=== PATIENT | female | born 1975 | race Caucasian/White ===

== ENCOUNTER 2020-11-05 09:27 | Inpatient (IN) | payer BC ==
--- OUTSIDE RECORDS SUMMARY | 2020-11-05 09:30 | XMS REPORT | Continuity of Care Document ---
:1975 Author Organization [facility] t Address [address] [place] [address] Dr. Whitaker. [address] [place] [address] Care Team Providers Name Role Phone DR LAUREN Attending Clinician Unavailable DR LAUREN Admitting Clinician Unavailable Problems This patient has no known problems. Allergies, Adverse Reactions, Alerts This patient has no known allergies or adverse reactions. Medications This patient has no known medications. Procedures This patient has no known procedures. Encounters Start End Encounter Admission Attending Care Care Encounter Source Date/Time Date/Time Type Type Clinicians Facility Department ID 2019-02-09 Inpatient SEMAJ JAMESON [facility] [id number] [facility] 06:34:00 [facility] Results This patient has no known results.
--- NOTE | 2020-11-05 10:39 | RAD REPORT ---
EXAM DESCRIPTION: US - Abdomen Exam Limited - 11/05/2020 10:29 am CLINICAL HISTORY: ABD PAIN COMPARISON: CT ABD PELVIS W CONTRAST dated 06/30/2011CT ABD PELVIS W CONTRAST dated 06/30/2011 FINDINGS: Gallbladder size is normal. There are multiple variably sized gallstones throughout the ga llbladder lumen including stones that remain fixed at the neck. Gallbladder wall thickening is presen t and there is a trace amount of pericholecystic fluid present. Pattern is consistent with acute chol ecystitis and needs correlation with clinical presentation. No common duct stone or biliary tree dilatation identified. IMPRESSION: Multiple gallstones, wall thickening and pericholecystic fluid involving a normal-sized gallbladder. Findings are consistent with acute cholecystitis and can be correlated with clinical presentation. No biliary tree abnormality identified.
[2020-11-05] MEDS ORDERED: ONDANSETRON 4 MG/2 ML VIAL ONE (11:08)
[2020-11-05] MEDS ORDERED: MORPHINE 2 MG/ML SYR ONE (11:08)
[2020-11-05 11:27] LABS: Absolute Lymphocytes (CBC) 0.8 K/uL (0.7-4.9); Basophils % 0.3 % (0-1.3); Hematocrit 40.8 % (36.0-45.0); Lymphocytes % 5.9 % (15.3-44.8); MPV 7.4 fL (7.6-11.3); RBC Red Blood Cell Count 4.62 M/uL (3.86-4.86)
[2020-11-05 11:40] LABS: Albumin 3.8 g/dL (3.4-5.0); Bilirubin Direct 0.3 mg/dL (0-0.2); Potassium 3.4 mmol/L (3.5-5.1); Protein, Total 8.2 g/dL (6.4-8.2)
[2020-11-05] MEDS ORDERED: CEFTRIAXONE/SWI 1gm 1 GM/10 ML SYR ONE (12:36)
[2020-11-05 13:16] LABS: Blood Morphology Comment NOT SEEN (NOT SEEN); Platelet Estimate ADEQ; White Blood Cell Scan OK (OK)
--- NOTE | 2020-11-05 14:43 | HP ---
Date of Admission: 11/05/2020 Chief Complaint: Abdominal pain. History Of Present Illness: The patient is a 45-year-old female, who presents with a 3-day history o f acute onset of epigastric pain going to the back, associated with nausea, vomiting, bloating. No b elching or heartburn. No diarrhea or constipation. No blood in her stool. No dysuria or hematuria. No sore throat, runny nose, cough, headaches, or dizziness. No chest pain. She does have a low-gr suzanne fever. Review of Systems: Otherwise unremarkable. Past Medical History: Negative. Past Surgical History: and hysterectomy. Allergies: INCLUDE CEPHALOSPORIN, PENICILLIN, CIPRO. IT IS UNSURE WHETHER THE PATIENT IS ALLERGIC T O CEPHALOSPORINS OR NOT AT THIS TIME. Social History: The patient denies smoking or drinking. Family History: Noncontributory. Physical Examination: Vital Signs: Stable. She is currently afebrile. General: She is awake, alert, and oriented x3. Head and Neck: No evidence of icterus. Cranial nerves 2 through 12 are grossly within normal limits . No neck masses. No JVD. Throat clear. Neck is supple. Chest: Clear. Heart: S1, S2. Abdomen: Soft, nondistended. Positive bowel sounds. Positive right upper quadrant tenderness. No rebound. No rigidity or guarding. Extremities: Adequately perfused. Nontender. Neuro: Nonfocal. Laboratory Data: White count is 13.8 with a left shift. Chemistry reviewed. LFTs are within normal limits. Ultrasound reviewed shows multiple gallstones, wall thickening, pericholecystic fluid invol ving the normal size gallbladder. Findings are consistent with acute cholecystitis. No biliary tree abnormalities identified. Assessment: Acute cholecystitis and cholelithiasis. Recommendations: Admit, n.p.o., IV fluid, IV antibiotic, to the OR for laparoscopic cholecystectomy possible open. The patient understands the risks, benefits, and alternatives and agrees to procedure . /MODL Voice ID: [id number]
[2020-11-05] MEDS ORDERED: ONDANSETRON 4 MG/2 ML VIAL IV PRN (16:51)
[2020-11-05] MEDS ORDERED: MORPHINE 2 MG/ML SYR IV PRN (16:57)
[2020-11-05] MEDS: METRONIDAZOLE 500mg IVPB 500 MG/100 ML BAG IV SCH (17:19)
[2020-11-05] MEDS: D5 0.45 NS 1,000 ML IV SCH (17:19)
[2020-11-05 17:37] VITALS: BMI 38.3
--- NOTE | 2020-11-05 18:02 | EDPHYS ---
Physician Documentation [facility] Name: Kimberly Mullen Age: 45 yrs Sex: Female : 1975 Arrival Date: 11/05/2020 Time: 09:29 Bed 23 Private MD: ED Physician Jacob Curiel HPI: 11/05 10:52 This 45 yrs old Female presents to ER via Ambulatory with complaints of rn Gallstones. 10:52 The patient presents with abdominal pain in the epigastric area, in the right upper rn quadrant. Onset: The symptoms/episode began/occurred 3 day(s) ago. The symptoms radiate to back. Associated signs and symptoms: Pertinent positives: nausea and vomiting, anorexia, fever, Pertinent negatives: blood in stools. The symptoms are described as constant, sharp. Modifying factors: The symptoms are alleviated by nothing, the symptoms are aggravated by touching the area. Severity of pain: At its worst the pain was moderate in the emergency department the pain is unchanged. The patient has not experienced similar symptoms in the past. The patient has been recently seen by a physician:. Patient states seen in [place] ER 3 days ago, told to follow-up with Dr. Szymanski as outpatient for gallstones seen on CT scan. No available ultrasound that night. Returns with persistent and constant upper abdominal pain associated with subjective fever and nausea. No previous gallstone attacks in the past.. Historical: - Allergies: 11:25 Cipro; ss 11:25 PENICILLINS; ss - Home Meds: 09:47 None [Active]; ss - PMHx: 09:47 MS; ss - PSHx: 09:47 Hysterectomy; Tonsillectomy; R foot; Lumpectomy of breast; ss - Immunization history:: Adult Immunizations up to date, Client reports having NOT received the Covid vaccine. - Social history:: Smoking status: Patient denies any tobacco usage or history of. - Family history:: not pertinent. - Hospitalizations: : No recent hospitalization is reported. ROS: 10:52 Constitutional: Negative for fever, chills, and weight loss, Eyes: Negative for injury, rn pain, redness, and discharge, Cardiovascular: Negative for chest pain, palpitations, and edema, Respiratory: Negative for shortness of breath, cough, wheezing, and pleuritic chest pain, Abdomen/GI: Positive for abdominal pain, nausea, vomiting Back: Negative for injury and pain, : Negative for injury, bleeding, discharge, and swelling, MS/Extremity: Negative for injury and deformity, Skin: Negative for injury, rash, and discoloration, Neuro: Negative for headache, weakness, numbness, tingling, and seizure. Exam: 10:52 Constitutional: This is a well developed, well nourished patient who is awake, alert, rn and in no acute distress. Head/Face: Normocephalic, atraumatic. Eyes: Periorbital areas with no swelling, redness, or edema. Cardiovascular: Regular rate and rhythm. No pulse deficits. Respiratory: No increased work of breathing, no retractions or nasal flaring. Abdomen/GI: Soft, positive epigastric and right upper quadrant tenderness with guarding, positive Nieves sign Skin: Warm, dry MS/ Extremity: Pulses equal, no cyanosis. Neuro: Awake and alert, GCS 15 Vital Signs: 09:43 BP 112 / 55; Pulse 94; Resp 16; Temp 99.3(TE); Pulse Ox 99% on R/A; Weight 86.18 kg; ss Height 5 ft. 0 in. (152.40 cm); Pain 6/10; 11:08 BP 100 / 60; Pulse 78; Resp 15; Pulse Ox 95% on R/A; Pain 0/10; ss 12:41 BP 108 / 60; Pulse 80; Resp 18; Pulse Ox 98% on R/A; ld1 13:40 BP 113 / 68; Pulse 86; Resp 18; Pulse Ox 100% on R/A; ld1 16:28 BP 118 / 76; Pulse 80; Resp 18; Pulse Ox 100% ; ld1 09:43 Body Mass Index 37.11 (86.18 kg, 152.40 cm) MDM: 10:24 Patient medically screened. rn 11:01 Differential diagnosis: cholecystitis, Cholelithiasis, gastritis. Data reviewed: vital rn signs, nurses notes, lab test result(s), radiologic studies, ultrasound, and as a result, I will admit patient. Counseling: I had a detailed discussion with the patient and/or guardian regarding: the historical points, exam findings, and any diagnostic results supporting the discharge/admit diagnosis, lab results, radiology results, the need for further work-up and treatment in the hospital. Response to treatment: the patient's symptoms have mildly improved after treatment, and as a result, I will admit patient. Admission orders: after a detailed discussion of the patient's condition and case, the admit orders are written by me. ED course: Ultrasound consistent with acute cholecystitis, will admit to Dr. Szymanski for cholecystectomy.. 11:50 ED course: Dr. Szymanski states not on-call, says Dr. Olson is road conductor will direct rn patient for admission to Dr. Olson. 11/05 10:41 Order name: CBC with Diff rn 11/05 10:41 Order name: Basic Metabolic Panel; Complete Time: 11:41 rn 11/05 10:41 Order name: LFT's; Complete Time: 11:41 rn 11/05 10:41 Order name: Lipase; Complete Time: 11:41 rn 11/05 12:09 Order name: COVID-19 : Document "Date of Symptom Onset" if Symptomatic. bd 11/05 13:17 Order name: CBC Smear Scan EDWV 11/05 09:55 Order name: US Abdomen Limited; Complete Time: 10:40 rn 11/05 10:41 Order name: IV Start; Complete Time: 11:03 rn 11/05 13:39 Order name: Diet Clear Liquid; Complete Time: 13:39 ld1 11/05 13:50 Order name: SARS-COV-2 RT PCR EDWV 11/05 10:41 Order name: NPO; Complete Time: 10:44 rn Administered Medications: 11:00 Drug: Zofran (Ondansetron) 4 mg Route: IVP; Site: right antecubital; ss 11:08 Follow up: Response: No adverse reaction ss 11:03 Drug: morphine 2 mg Route: IVP; Site: right antecubital; ss 11:08 Follow up: Response: No adverse reaction; Marked relief of symptoms; Pain is decreased ss 11:39 Not Given (Allergyy): Zosyn (piperacillin-tazobactam) 3.375 grams IVPB once over 60 rn mins; (mix in NS 100 mL) 12:24 Drug: Rocephin (cefTRIAXone) 1 grams Route: IV; Rate: calculated rate; Site: right ld1 antecubital; 12:25 Follow up: Response: No adverse reaction; IV Status: Completed infusion ld1 Disposition Summary: 11/05/20 11:02 Hospitalization Ordered Hospitalization Status: Inpatient Admission rn Location: Telemetry/MedSur (Inpatient) rn Condition: Stable rn Problem: new rn Symptoms: have improved rn Bed/Room Type: Standard rn Provider: Mykel Olson(11/05/20 11:51) rn Room Assignment: [facility](11/05/20 15:31) ss Diagnosis - Acute cholecystitis rn Forms: - Medication Reconciliation Form rn - SBAR form rn Signatures: Dispatcher [employer] EDWV Jacob Curiel MD MD rn Smirch, Shelby, RN RN Joy Burks RN RN ld1 Corrections: (The following items were deleted from the chart) 11:25 09:47 Allergies: No Known Allergies; [facility] 11: 11:02 Azar Szymanski rn rn 15:31 11:02 rn ss
--- NOTE | 2020-11-05 18:02 | ER ---
Nurse's Notes [facility] Name: Kimberly Mullen Age: 45 yrs Sex: Female : 1975 Arrival Date: 11/05/2020 Time: 09:29 Bed 23 Private MD: Diagnosis: Acute cholecystitis Presentation: 11/05 09:43 Chief complaint: Patient states: epigastric pain that began 3 days ago. Pt had CT at another ER which showed cholelithiasis. Pt states that she has an appt with Dr. Szymanski in two days, but just need some pain relief for now. Coronavirus screen: Client denies travel out of the [place] in the last 14 days. Ebola Screen: Patient denies exposure to infectious person. Patient denies travel to an Ebola-affected area in the 21 days before illness onset. Initial Sepsis Screen: Does the patient meet any 2 criteria? No. Patient's initial sepsis screen is negative. Does the patient have a suspected source of infection? No. Patient's initial sepsis screen is negative. Risk Assessment: Do you want to hurt yourself or someone else? Patient reports no desire to harm self or others. Note Pt reports that PO Tramadol that was given during previous hospital visit helped her discomfort significantly. Onset of symptoms was November 02, 2020. 09:43 Method Of Arrival: Ambulatory ss 09:43 Acuity: ALBERTINA 4 ss 10:43 Acuity: ALBERTINA 3 ss Historical: - Allergies: 11:25 Cipro; ss 11:25 PENICILLINS; ss - Home Meds: 09:47 None [Active]; ss - PMHx: 09:47 MS; ss - PSHx: 09:47 Hysterectomy; Tonsillectomy; R foot; Lumpectomy of breast; - Immunization history:: Adult Immunizations up to date, Client reports having NOT received the Covid vaccine. - Social history:: Smoking status: Patient denies any tobacco usage or history of. - Family history:: not pertinent. - Hospitalizations: : No recent hospitalization is reported. Screenin:29 Abuse screen: Denies threats or abuse. Denies injuries from another. Nutritional ss screening: No deficits noted. Tuberculosis screening: Never had TB. Fall Risk None identified. Assessment: 10:29 Reassessment: Pt now in exam room after having ultrasound completed. ss 10:30 General: Appears in no apparent distress. comfortable, Behavior is calm, cooperative, ss Denies fever, feeling ill, fatigue, chills. Pain: Complains of pain in epigastric area Pain currently is 6 out of 10 on a pain scale. Quality of pain is described as aching, Pain began 3 days ago Is continuous. Neuro: Level of Consciousness is awake, alert, obeys commands, Oriented to person, place, time, situation, Nanny/Household Manager are equal bilaterally Speech is normal. Cardiovascular: Capillary refill < 3 seconds is brisk in bilateral fingers Patient's skin is warm and dry. Respiratory: Airway is patent Respiratory effort is even, unlabored, Respiratory pattern is regular, symmetrical. GI: Reports upper abdominal pain. : No signs and/or symptoms were reported regarding the genitourinary system. EENT: Oral mucosa is moist. Derm: Skin is intact, is healthy with good turgor, Skin is dry, Skin is pink, warm \\T\\ dry. normal. Musculoskeletal: Circulation, motion, and sensation intact. Range of motion: intact in all extremities, Swelling absent. 11:07 Reassessment: awaiting for pharmacy to bring Zosyn. ss 11:56 Reassessment: Patient appears in no apparent distress at this time. Patient and/or ss family updated on plan of care and expected duration. Pain level reassessed. Patient is alert, oriented x 3, equal unlabored respirations, skin warm/dry/pink. Zosyn changed due to patient's allergies. Patient states feeling better. Patient states symptoms have improved. 12:41 Reassessment: Patient appears in no apparent distress at this time. No changes from ld1 previously documented assessment. Patient and/or family updated on plan of care and expected duration. Pain level reassessed. Patient is alert, oriented x 3, equal unlabored respirations, skin warm/dry/pink. 13:40 Reassessment: Patient appears in no apparent distress at this time. No changes from ld1 previously documented assessment. Patient is alert, oriented x 3, equal unlabored respirations, skin warm/dry/pink. 16:28 Reassessment: Patient appears in no apparent distress at this time. No changes from ld1 previously documented assessment. Patient and/or family updated on plan of care and expected duration. Pain level reassessed. Patient is alert, oriented x 3, equal unlabored respirations, skin warm/dry/pink. Vital Signs: 09:43 BP 112 / 55; Pulse 94; Resp 16; Temp 99.3(TE); Pulse Ox 99% on R/A; Weight 86.18 kg; ss Height 5 ft. 0 in. (152.40 cm); Pain 6/10; 11:08 BP 100 / 60; Pulse 78; Resp 15; Pulse Ox 95% on R/A; Pain 0/10; ss 12:41 BP 108 / 60; Pulse 80; Resp 18; Pulse Ox 98% on R/A; ld1 13:40 BP 113 / 68; Pulse 86; Resp 18; Pulse Ox 100% on R/A; ld1 16:28 BP 118 / 76; Pulse 80; Resp 18; Pulse Ox 100% ; ld1 09:43 Body Mass Index 37.11 (86.18 kg, 152.40 cm) ED Course: 09:29 Patient arrived in ED. mr 09:47 Triage completed. ss 09:47 Arm band placed on right wrist. ss 10:24 Jacob Curiel MD is Attending Physician. rn 10:29 US Abdomen Limited In Process Unspecified. EDMS 10:29 Alexandra Tapia RN is Primary Nurse. ss 10:29 Patient has correct armband on for positive identification. Bed in low position. Call ss light in reach. 11:01 Azar Szymanski MD is Hospitalizing Provider. rn 11:02 Inserted saline lock: 20 gauge in right antecubital area, using aseptic technique. ss Blood collected. 11:51 Hospitalizing Provider role handed off by Azar Szymanski MD rn 11:51 Mykel Olson MD is Hospitalizing Provider. rn 12:24 COVID-19 : Document "Date of Symptom Onset" if Symptomatic. Sent. ld1 16:28 No provider procedures requiring assistance completed. Patient admitted, IV remains in ld1 place. intact, bleeding controlled, No redness/swelling at site. Administered Medications: 11:00 Drug: Zofran (Ondansetron) 4 mg Route: IVP; Site: right antecubital; ss 11:08 Follow up: Response: No adverse reaction ss 11:03 Drug: morphine 2 mg Route: IVP; Site: right antecubital; ss 11:08 Follow up: Response: No adverse reaction; Marked relief of symptoms; Pain is decreased ss 11:39 Not Given (Allergyy): Zosyn (piperacillin-tazobactam) 3.375 grams IVPB once over 60 rn mins; (mix in NS 100 mL) 12:24 Drug: Rocephin (cefTRIAXone) 1 grams Route: IV; Rate: calculated rate; Site: right ld1 antecubital; 12:25 Follow up: Response: No adverse reaction; IV Status: Completed infusion ld1 Outcome: 11:02 Decision to Hospitalize by Provider. rn 16:41 Patient left the ED. ld1 16:41 Admitted to Med/surg accompanied by tech, via wheelchair. ss 16:41 Condition: good 16:41 Instructed on the need for admit. Signatures: Dispatcher [employer] EDMO Tiarra Rocha mr Jacob Curiel MD MD rn Smirch, Shelby, RN RN Joy Burks RN RN ld1 Corrections: (The following items were deleted from the chart) 11:25 09:47 Allergies: No Known Allergies; ss ss
[2020-11-05] MEDS: HYDROMORPHONE HCL 1 MG/ML INJ IV PRN (20:09)
[2020-11-06] MEDS: HYDROMORPHONE HCL 1 MG/ML INJ IV PRN ×4 (00:50→08:27)
[2020-11-06] MEDS: D5 0.45 NS 1,000 ML IV SCH ×3 (00:58→16:51)
[2020-11-06] MEDS: METRONIDAZOLE 500mg IVPB 500 MG/100 ML BAG IV SCH ×3 (00:58→16:03)
[2020-11-06 04:42] LABS: Absolute Lymphocytes (CBC) 0.6 K/uL (0.7-4.9); Basophils % 0.2 % (0-1.3); Hematocrit 37.3 % (36.0-45.0); Lymphocytes % 3.4 % (15.3-44.8); MPV 7.4 fL (7.6-11.3); RBC Red Blood Cell Count 4.21 M/uL (3.86-4.86)
[2020-11-06 04:58] LABS: ALT/SGPT 16 U/L (12-78); AST/SGOT 10 U/L (15-37); Albumin 3.1 g/dL (3.4-5.0); Alkaline Phosphatase 90 U/L (45-117); BUN Blood Urea Nitrogen 12 mg/dL (7-18); Bicarbonate 23 mmol/L (21-32); Bilirubin Direct 0.3 mg/dL (0-0.2); Bilirubin Total 0.8 mg/dL (0.2-1.0); Glucose Level 151 mg/dL (74-106); Lipase 89 U/L (73-393); Potassium 3.4 mmol/L (3.5-5.1); Sodium Level 136 mmol/L (136-145)
[2020-11-06] MEDS: CEFTRIAXONE/SWI 1gm 1 GM/10 ML SYR IVP SCH (08:33)
[2020-11-06] MEDS ORDERED: Ringers Lactate 1,000 ML IV ONE ×2 (09:06→11:50)
[2020-11-06] MEDS ORDERED: BUPIVACAINE 0.5% PF 10 ML VIAL ONE (09:35)
[2020-11-06] MEDS ORDERED: propofoL 200 MG/20 ML VIAL IV ONE (10:26)
[2020-11-06] MEDS ORDERED: MIDAZOLAM HCL 2 MG/2 ML INJ ONE (10:26)
[2020-11-06] MEDS ORDERED: ROCURONIUM 50 MG/5 ML VIAL IV ONE (10:26)
[2020-11-06] MEDS ORDERED: LIDOCAINE 1% MPF 5 ML VIAL ONE (10:26)
[2020-11-06] MEDS ORDERED: FENTANYL CITR 100 MCG/2 ML ONE ×2 (10:26→12:00)
[2020-11-06] MEDS ORDERED: dexAMETHasone 10 MG/ML VIAL ONE (10:59)
[2020-11-06] MEDS ORDERED: KETOROLAC 30 MG/ML INJ ONE (10:59)
[2020-11-06] MEDS ORDERED: ONDANSETRON 4 MG/2 ML VIAL ONE (10:59)
[2020-11-06] MEDS ORDERED: EPHEDRINE SULF 50 MG/ML VIAL ONE (11:13)
[2020-11-06] MEDS ORDERED: NS 0.9% VIAL 10 ML ONE (11:14)
[2020-11-06] MEDS ORDERED: NEOSTIGMINE 1 MG/ML -5 ML ONE (11:34)
[2020-11-06] MEDS ORDERED: GLYCOPYRROLATE 0.2 MG/ML SYR ONE (11:34)
[2020-11-06] MEDS ORDERED: HYDROCODONE/APAP 7.5/325 MG TAB PO PRN (11:52)
--- NOTE | 2020-11-06 11:52 | P.OP ---
Charger Operator: Eddie LOPEZ Preoperative diagnosis: Acute Cholecystitis and Cholelithiasis Postoperative diagnosis: same with umbilical hernia Primary procedure: Lap Dia, Repair Umbilical hernia Anesthesia: General Estimated blood loss: min Specimen: GB Findings: as above Drain(s): KINGS drain Transferred to: Recovery Room Condition: Good
[2020-11-06] MEDS ORDERED: Mastisol Adhesive Liq ONE (12:10)
--- NOTE | 2020-11-06 12:52 | OP ---
Date of Procedure: 11/06/2020 Surgeon: Mykel Olson MD Weigher Production: JOHN Morales Preoperative Diagnoses: Acute cholecystitis with cholelithiasis. Postoperative Diagnoses: Acute cholecystitis with cholelithiasis with gangrenous changes and umbilic al hernia. Procedures Performed: Laparoscopic cholecystectomy, repair of umbilical hernia. Estimated Blood Loss: Minimal. Specimen: Hernia sac and gallbladder. Finding: As above. Anesthesia: General. Complications: None. Drains: KINGS #10 flat Disposition: The patient tolerated the procedure in stable condition and taken to Recovery in good g eneral condition. Procedure In Detail: The patient was brought to the OR and placed in supine position. General anest hesia begun. The patient was prepped and draped in the usual sterile fashion. Marcaine 0.5% infiltr ated locally and a 15-blade was used to make a 1.5 cm incision just at the umbilicus. Subcutaneous t issue divided and a hernia sac was identified just above the umbilicus. The contents were excised, h ernia sac was excised, sent to pathology. A small defect in the fascia remained, which was extended to approximately 1 cm and a #1 Vicryl stay suture was placed. Peritoneal cavity was entered with sha rp and blunt dissection. A 12 mm trocar was placed into the peritoneal cavity under direct vision. Pneumoperitoneum was established. Then, three 5 mm trocars were placed, 1 in the epigastrium just to the right of midline and 2 in the right subcostal region. Laparoscopy revealed some adhesions in th e right side of the abdomen, which were taken down with LigaSure. Fundus of the gallbladder was iden tified. There were ischemic and gangrenous changes noted in the fundus and near the infundibulum and the cystic duct region. It was distended. It was aspirated off bile and then the fundus retracted superiorly. Infundibulum was identified and carefully retracted inferolaterally. Then, cystic duct and cystic artery were identified. They appeared to be healthy and clips were placed and both struct ures were divided. Cautery used to remove the gallbladder from the liver bed. Bleeding on the liver bed was controlled with cautery and then gallbladder was retrieved through the umbilicus via an Endo Catch bag and then right upper quadrant was examined. No evidence of bleeding or bile leakage apprec iated. Jad-Mcqueen drain #10 flat placed in the gallbladder fossa because of the ischemic and gang renous changes seen on the gallbladder especially near the cystic duct and then this was secured with 3-0 nylon and then #1 Vicryl was used to close the fascial defect and subcutaneous wounds irrigated. Bleeding controlled with cautery. A 3-0 chromic used to reapproximate subcutaneous tissue and stap les used to close skin. Sterile dressing applied. The patient was awakened and taken to Recovery in good general condition. AL/MANDEEP Voice ID: [id number] Report ID: [id number]
[2020-11-06] MEDS ORDERED: NA CHLORIDE 0.9% 50 ML ONE (21:49)
[2020-11-06] MEDS ORDERED: PIPERACIL/TAZO 2.25 GM VIAL IV ONE (21:49)
[2020-11-07] MEDS: D5 0.45 NS 1,000 ML IV SCH ×2 (00:09→08:51)
[2020-11-07] MEDS: METRONIDAZOLE 500mg IVPB 500 MG/100 ML BAG IV SCH ×2 (00:09→09:56)
[2020-11-07 07:05] LABS: Absolute Lymphocytes (CBC) 0.6 K/uL (0.7-4.9); Basophils % 0.2 % (0-1.3); Hematocrit 34.6 % (36.0-45.0); Lymphocytes % 3.4 % (15.3-44.8); MPV 7.5 fL (7.6-11.3); RBC Red Blood Cell Count 3.91 M/uL (3.86-4.86)
[2020-11-07 07:16] LABS: BUN Blood Urea Nitrogen 15 mg/dL (7-18); Bicarbonate 25 mmol/L (21-32); Glucose Level 138 mg/dL (74-106); Magnesium 2.3 mg/dL (1.8-2.4); Phosphorus 1.8 mg/dL (2.5-4.9); Potassium 3.6 mmol/L (3.5-5.1); Sodium Level 139 mmol/L (136-145)
[2020-11-07 08:59] VITALS: BP 102/59; TEMP 98.7
[2020-11-07] MEDS ORDERED: POTASSIUM CL SA 10 MEQ TAB PO ONE (09:00)
--- NOTE | 2020-11-07 09:11 | DS ---
Date of Discharge: 11/07/2020 Admitting Diagnosis: Acute cholecystitis and cholelithiasis. Discharge Diagnosis: Acute cholecystitis and cholelithiasis with gangrenous and ischemic changes of the gallbladder. Hospital Course: The patient is a 45-year-old female, who underwent a laparoscopic cholecystectomy y esterday for acute gangrenous cholecystitis and cholelithiasis. She was also found to have a hernia in the umbilical region which was repaired as well. Postoperatively, she is tolerating diet, ambulat ing. Pain controlled on p.o. pain medication. Minimal drainage from the KINGS. The patient is afebril e; therefore, the patient will be discharged to home. Disposition: Home. Condition: Stable. Discharge Instructions: Resume home medications and diet. Activity as tolerated. Record KINGS output q.12 hours, bring record to office. Tylenol No.3 one tablet p.o. q.4 p.r.n. pain, Cipro 500 mg p.o. q.12 hours. Follow up in my office in 1 week. Call for appointment. AL/MANDEEP Voice ID: [id number] Report ID: [id number]
[2020-11-07 09:15] LABS: Blood Morphology Comment NOT SEEN (NOT SEEN); Platelet Estimate ADEQ; White Blood Cell Scan OK (OK)
[2020-11-07 09:41] VITALS: O2SAT 91
[2020-11-07] MEDS: POTASS/SODIUM PHOSPHATE 1 PKT POWD.PACK PO SCH ×3 (09:57→11:00)
[2020-11-07] MEDS: CEFTRIAXONE/SWI 1gm 1 GM/10 ML SYR IVP SCH (09:57)
== END 2020-11-07 12:27 | disposition home or self-care (01) | DRG 419 ==
LOC: ER 09:27 → ERHOLD 12:34 → 2ND 16:01
PROVIDERS: ADMIT Surgery; ATTEND Surgery
PROC: 0WQF4ZZ Repair Abdominal Wall, Percutaneous Endoscopic Approach (ICD-10-PCS; 2020-11-06)
PROC: 0FT44ZZ Resection of Gallbladder, Percutaneous Endoscopic Approach (ICD-10-PCS; principal; 2020-11-06 11:15)
DX: K80.00 Calculus of gallbladder with acute cholecystitis without obstruction (principal); K82.A1 Gangrene of gallbladder in cholecystitis; K42.9 Umbilical hernia without obstruction or gangrene; Z88.0 Allergy status to penicillin; Z88.1 Allergy status to other antibiotic agents; Z90.710 Acquired absence of both cervix and uterus; Z20.822 Contact with and (suspected) exposure to COVID-19
CPT/HCPCS: 36415; 76705; 80048; 80076; 83690; 83735; 84100; 85025; 88302; 88304; 94010; 96374; 96375; 99285; J0696; J1100; J1170; J2250; J2270; J2405; J2543; J2704; J2710; J3010; J7120; J7799; U0003

== ENCOUNTER 2024-08-26 14:44 | Emergency (ER) | payer BC ==
[2024-08-26] MEDS ORDERED: dexAMETHasone 10 MG/ML VIAL ONE (16:26)
--- NOTE | 2024-08-26 16:26 | EDPHYS ---
Physician Documentation [facility] Name: Kimberly Garay Age: 48 yrs Sex: Female : 1975 Arrival Date: 08/26/2024 Time: 14:44 Bed 12 Private MD: ED Physician Jacob Curiel HPI: 08/26 17:22 This 48 yrs old Female presents to ER via Ambulatory with complaints of Foot dr5 Pain, Feet Swelling. 17:22 The patient presents with pain. The complaints affect the dorsum of right foot. Patient dr5 is a 48-year-old female coming in with right foot pain on bottom that started yesterday. Patient reports that she took ibuprofen mild to moderately helped. Patient denies trauma or falls.. Historical: - Allergies: 14:50 Cipro; ll1 14:50 PENICILLINS; ll1 - PMHx: 14:50 MS; ll1 - PSHx: 14:50 hysterectomy; Lumpectomy of breast; R foot; Tonsillectomy; ll1 - Immunization history:: Adult Immunizations up to date. - Infectious Disease History:: Denies. - Social history:: Smoking status: Patient denies any tobacco usage or history of. ROS: 17:22 Constitutional: as per hpi dr5 Exam: 17:22 Constitutional: This is a well developed, well nourished patient who is awake, alert, dr5 and in no acute distress. Head/Face: Normocephalic, atraumatic. Eyes: Pupils equal round and reactive to light, extra-ocular motions intact. Lids and lashes normal. Conjunctiva and sclera are non-icteric and not injected. Cornea within normal limits. Periorbital areas with no swelling, redness, or edema. Neck: Trachea midline, no thyromegaly or masses palpated, and no cervical lymphadenopathy. Supple, full range of motion without nuchal rigidity, or vertebral point tenderness. No Meningismus. Chest/axilla: Normal chest wall appearance and motion. Nontender with no deformity. No lesions are appreciated. Cardiovascular: Regular rate and rhythm with a normal S1 and S2. Normal PMI, no JVD. No pulse deficits. Respiratory: Lungs have equal breath sounds bilaterally, clear to auscultation. No rales, rhonchi or wheezes noted. No increased work of breathing, no retractions or nasal flaring. Back: No spinal tenderness. No costovertebral tenderness. Full range of motion. Skin: Warm, dry with normal turgor. Normal color with no rashes, no lesions, and no evidence of cellulitis. Neuro: Awake and alert, GCS 15, oriented to person, place, time, and situation. Cranial nerves II-XII grossly intact. Motor strength 5/5 in all extremities. Sensory grossly intact. Cerebellar exam normal. Normal gait. 17:22 Musculoskeletal/extremity: Extremities: noted in the arch of right foot: swelling, tenderness, ROM: no acute changes, Circulation is intact in all extremities. Sensation intact. Vital Signs: 15:00 BP 138 / 70; Pulse 56; Resp 17; Temp 97.6; Pulse Ox 96% ; Weight 90.72 kg; Height 5 ft. ll1 0 in. ; Pain 8/10; 15:00 Body Mass Index 39.06 (90.72 kg, 152.4 cm) ll1 15:00 Pain Scale: Adult ll1 MDM: 15:03 Medical Screening Exam initiated dr5 17:22 Differential diagnosis: contusion, abrasion, tendonitis, Plantar fasciitis, gout. Data dr5 reviewed: vital signs, nurses notes. Care significantly affected by the following chronic conditions: MS. Care significantly affected by the following Social Determinants of Health: Poor access to healthcare and/or lack of insurance, Poor access to transportation, Problems related to employment. Counseling: I had a detailed discussion with the patient and/or guardian regarding the historical points, exam findings, and any diagnostic results supporting the discharge/admit diagnosis, the presence of at least one elevated blood pressure reading (>120/80) during this emergency department visit, the need for outpatient follow up, for definitive care, a family practitioner, to return to the emergency department if symptoms worsen or persist or if there are any questions or concerns that arise at home. ED course: Will give patient 1 dose of steroids and steroid pack top with inflammation. Explained plantar fasciitis and need for NSAIDs, RICE, ice or heat for pain relief, and insoles if pain does not improve. Recommended patient follow with primary care doctor for further management. All questions answered.. Administered Medications: 16:27 Drug: Dexamethasone IM 10 mg IM once Route: IM; Site: left ventrogluteal; hb 16:44 Follow up: Response: No adverse reaction hb Disposition Summary: 08/26/24 16:26 Discharge Ordered Notes: Location: Home dr5 Condition: Stable dr5 Diagnosis - Pain in right foot dr5 Followup: dr5 - With: Emergency Department - When: As needed - Reason: Worsening of condition Followup: dr5 - With: Private Physician - When: 1 - 2 days - Reason: Recheck today's complaints, Continuance of care, Re-evaluation by your physician Discharge Instructions: - Discharge Summary Sheet dr5 - Plantar Fasciitis dr5 Forms: - Work release form dr5 - Medication Reconciliation Form dr5 - Patient Portal Instructions dr5 - Leadership Thank You Letter dr5 Prescriptions: - Tramadol 50 mg Oral Tablet - take 1 tablet ORAL route every 8 hours as needed; 12 tablet; Refills: 0, dr5 Product Selection Permitted - Medrol (Jeffrey) 4 mg Oral Tablets, Dose Pack - take 1 tablet ORAL route as directed - follow package instructions; 1 packet; dr5 Refills: 0, Product Selection Permitted Signatures: Saira Geol, RN RN Frankie Benson RN RN ll Harlan Pro, V BELT COVERER-C V BELT COVERER-Cdr5
--- NOTE | 2024-08-26 16:26 | ER ---
Nurse's Notes [facility] Name: Kimberly Garay Age: 48 yrs Sex: Female : 1975 Arrival Date: 08/26/2024 Time: 14:44 Bed 12 Private MD: Diagnosis: Pain in right foot Presentation: 08/26 15:00 Chief complaint: Patient states: R foot pain and swelling since last night. No trauma. ll1 Coronavirus screen: Client denies travel out of the [place] in the last 14 days. At this time, the client does not indicate any symptoms associated with coronavirus-19. Ebola Screen: Patient denies travel to an Ebola-affected area in the 21 days before illness onset. Initial Sepsis Screen: Does the patient meet any 2 criteria? No. Patient's initial sepsis screen is negative. Does the patient have a suspected source of infection? No. Patient's initial sepsis screen is negative. Risk Assessment: Do you want to hurt yourself or someone else? Patient reports no desire to harm self or others. Onset of symptoms was August 25, 2024. 15:00 Method Of Arrival: Ambulatory ll1 15:00 Acuity: ALBERTINA 4 ll1 Triage Assessment: 15:02 General: Appears uncomfortable, Behavior is calm, cooperative, appropriate for age. ll1 Pain: Complains of pain in right foot. Musculoskeletal: Reports pain in right foot. Historical: - Allergies: 14:50 Cipro; ll1 14:50 PENICILLINS; ll1 - PMHx: 14:50 MS; ll1 - PSHx: 14:50 hysterectomy; Lumpectomy of breast; R foot; Tonsillectomy; ll1 - Immunization history:: Adult Immunizations up to date. - Infectious Disease History:: Denies. - Social history:: Smoking status: Patient denies any tobacco usage or history of. Screenin:45 [facility] ED Fall Risk Assessment (Adult) History of falling in the last 3 months, hb including since admission No falls in past 3 months (0 pts) Confusion or Disorientation No (0 pts) Intoxicated or Sedated No (0 pts) Impaired Gait No (0 pts) Mobility Assist Device Used No (0 pt) Altered Elimination No (0 pt) Score/Fall Risk Level 0 - 2 = Low Risk Oriented to surroundings, Maintained a safe environment, Educated pt \T\ family on fall prevention, incl call for assistance when getting out of bed. Abuse screen: Denies threats or abuse. Denies injuries from another. Nutritional screening: No deficits noted. Tuberculosis screening: No symptoms or risk factors identified. Assessment: 15:40 Reassessment: Patient and/or family updated on plan of care and expected duration. Pain ll1 level reassessed. 15:45 General: Appears in no apparent distress. Behavior is calm, cooperative. Neuro: Level hb of Consciousness is awake, alert, obeys commands, Oriented to person, place, time, situation. Cardiovascular: Patient's skin is warm and dry. Respiratory: Respiratory effort is even, unlabored, Respiratory pattern is regular, symmetrical. Musculoskeletal: Reports right foot pain and swelling. 16:44 Reassessment: Patient appears in no apparent distress at this time. Patient and/or hb family updated on plan of care and expected duration. Pain level reassessed. Patient is alert, oriented x 3, equal unlabored respirations, skin warm/dry/pink. Vital Signs: 15:00 BP 138 / 70; Pulse 56; Resp 17; Temp 97.6; Pulse Ox 96% ; Weight 90.72 kg; Height 5 ft. ll1 0 in. ; Pain 8/10; 15:00 Body Mass Index 39.06 (90.72 kg, 152.4 cm) ll1 15:00 Pain Scale: Adult ll1 ED Course: 14:50 Patient arrived in ED. sj2 14:51 Arm band placed on. ll1 15:02 Harlan [facility]C [facility]. dr5 15:02 Jacob Curiel MD is Attending Physician. dr5 15:02 Triage completed. ll1 15:40 Patient placed in an exam room, on a stretcher. ll1 15:45 Saira Goel, KATHE is Primary Nurse. hb 15:45 Patient has correct armband on for positive identification. Bed in low position. Call hb light in reach. 16:44 Provided Education on: follow up. hb 16:44 No provider procedures requiring assistance completed. Patient did not have IV access hb during this emergency room visit. Administered Medications: 16:27 Drug: Dexamethasone IM 10 mg IM once Route: IM; Site: left ventrogluteal; hb 16:44 Follow up: Response: No adverse reaction hb Medication: 15:45 VIS not applicable for this client. hb Outcome: 16:26 Discharge ordered by . dr5 16:44 Discharged to home ambulatory, with significant other, hb 16:44 Condition: stable 16:44 Discharge instructions given to patient, Instructed on discharge instructions, follow up and referral plans. medication usage, Demonstrated understanding of instructions, follow-up care, medications, Prescriptions given X 2, 16:44 Patient left the ED. hb Signatures: Saira Goel RN RN hb Frankie Benson RN RN ll1 Raya Carreon2 Harlan Pro, INKER MACHINE-C INKER MACHINE-Cdr5 Corrections: (The following items were deleted from the chart) 16:03 15:00 Chief complaint: Patient states: R foot pain and swelling since last night. ll1 ll1
[2024-08-26 16:50] VITALS: BP 138/70; TEMP 97.6; O2SAT 96
== END 2024-08-26 16:44 | disposition home or self-care (01) ==
LOC: ER 14:44
DX: M79.671 Pain in right foot (principal)
CPT/HCPCS: 96372; 99284; J1100